=== PATIENT | female | born 1990 | race Caucasian/White ===

== ENCOUNTER 2016-09-29 21:57 | Emergency (ER) | payer OTHER ==
--- NOTE | 2016-09-29 22:34 | ED ORDER SUMMARY ---
..... Patient: AUSTIN LYNN OrderSheet [facility] VisitID: [id number] [address] [place] [place] [address] 26y, F Registration Date/Time: 09/29/2016 ORDER SHEET Weight: 90.7 kg (stated) Allergies: Hydrocodone GENERAL ORDERS: Visual Acuity (22:21 09/29/2016 EKoroleva P.A.-C) (22:36 KPage-Kuchan R.N.) MEDICATION ORDERS: Toradol IM 60 mg (NOW) (22:32 09/29/2016 EKoroleva P.A.-C) (Ack 22:36 KPage-Kuchan R.N.) (22:48 KPage-Kuchan R.N.) Zofran ODT PO 4 mg (NOW) (22:32 09/29/2016 EKoroleva P.A.-C) (Ack 22:36 KPage-Kuchan R.N.) (22:48 KPage-Kuchan R.N.) IV FLUIDS: ORDER SHEET NOTES: [Electronically signed by Kirstin FigueroaAYunior-Jesi (22:55 09/29/2016)] [Electronically signed by Elian Ibanez R.N. (23:20 09/29/2016)] [Electronically locked/signed by Elian Ibanez R.N. (23:20 09/29/2016)]
--- NOTE | 2016-09-29 22:34 | ED NURSING NOTES ---
Clinical Report - Nurses [facility] [address] [place] [address] 09/29/2016 21:58 Patient: AUSTIN LYNN TRIAGE Triage time 22:Sep 29 2016. Acuity: LEVEL 4. Chief Complaint: HEADACHE and (pt c/o headache to left side of head, hx of migraine, pt with redness to left eye since thursday last week- describes as "itchy" denies drainage). Alert. No acute distress. AMALIA COMA SCORE: [place] Coma Scale: 15- eyes open spontaneously (4); best verbal response- oriented x 4 (5); best motor response- obeys commands (6). --22:14 Elian Ibanez R.N. 22:06 09/29/16. BP: 135/80. HR: 76. RR: 15. O2 saturation: 100%. Temp: 98 F. Pain level now: 09/27. --22:14 Elian Ibanez R.N. Weight: 90.7 kg stated. Height/Length: 62 inches Per Patient. BMI: 36.6. --22:07 Elian Ibanez R.N. Medications None. --22:08 Elian Ibanez R.N. Allergies Hydrocodone. --22:09 Elian Ibanez R.N. Medication/allergy information source: the patient. --22:14 Elian Ibanez R.N. History Arrived by private vehicle. 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 PAST MEDICAL HX: Immunizations: up-to-date. Last normal menstrual period- September 10. SOCIAL HX: Former smoker, end date 2013. Alcohol use; consumes beer occasionally, liquor occasionally and wine occasionally. No drug use. No infectious disease exposure. No known contact with a sick individual. ABUSE ASSESSMENT: No report of abuse. SELF HARM ASSESSMENT: A self harm assessment was performed. The patient answered "no" to the question "Do you have thoughts of harming or killing yourself?". FALL RISK ASSESSMENT: Fall risk assessment completed. No fall risk identified. NUTRITIONAL RISK ASSESSMENT: The nutritional risk assessment revealed no deficiencies. FUNCTIONAL ASSESSMENT: Functional assessment: no impairments noted. LEARNING NEEDS ASSESSMENT: The learning needs assessment revealed no barriers. SKIN INTEGRITY ASSESSMENT: Skin integrity risk assessment completed. No skin integrity risk identified. --22:14 Elian Ibanez R.N. PROBLEMS: Pelvic Inflammatory Disease. Eczema. Ovarian Cyst. Abdominal Pain. Tonsillitis. Psoriasis. Gastroenteritis. LNMP - Last Normal Menstrual Period. ITP. Endometriosis. --22:09 Elian Ibnaez R.N. ADDITIONAL SURGERIES: Endoscopy. uterine Ablasion. --22:09 Elian Ibanez R.N. Interventions ID band on patient. --22:14 Elian Ibanez R.N. PHYSICAL ASSESSMENT Ambulatory to room. GENERAL / NEURO / PSYCH: Alert. Oriented X 4. Appears in no acute distress. Speech within normal limits. HEENT: No facial asymmetry noted. Pupils equal, round and reactive to light. RESPIRATORY: Respirations not labored. GI / : Abdomen soft and nontender. SKIN: Skin is warm and dry. --22:15 Elian Ibanez R.N. NURSING PROGRESS NOTES Reassurance given. Patient identifiers checked. Call light placed in reach. Side rails up x 1. Bed placed in lowest position. Brakes of bed on. Patient waiting for evaluation. --22:16 Elian Ibanez R.N. VISUAL ACUITY: Visual acuity performed without corrective lenses: left eye 20/30; right eye 20/25 minus two letters; both eyes 20/25. --22:39 Janette Jael 22:43 09/29/2016 Zofran ODT (Ondansetron) PO 4 mg given. Allergies verified and confirmed 5 rights. --22:48 Elian Ibanez R.N. 22:43 09/29/2016 Toradol (Ketorolac Tromethamine) IM 60 mg given. Given in the left gluteus geo. Allergies verified and confirmed 5 rights. --22:48 Elian Ibanez R.N. DISPOSITION / DISCHARGE Condition at departure: improved. No learning barriers present. Discharge instructions provided and reviewed with the patient. Reviewed medication(s) side effects, precautions, dosing and course information. Prescription(s) given to the patient. Patient verbalized understanding. Written instructions provided in Dutch. The patient was discharged by the physician treasury assistant. She was discharged home. She left the Emergency Department ambulatory and via private vehicle. Patient driving. --23:17 Elian Ibanez R.N. 23:15 09/29/16. BP: 124/74. HR: 72. RR: 15. O2 saturation: 99%. Temp: deferred. Pain level now: 06/27. --23:17 Elian Ibanez R.N. Locked/Released at 09/29/2016 23:20 by Elian Ibanez R.N.
--- NOTE | 2016-09-29 22:34 | ED CLINICAL REPORT ---
Clinical Report - Physicians/Mid Levels [facility] [address] [place] [address] 09/29/2016 21:58 Patient: AUSTIN LYNN Time Seen: 2229Sep 29 2016. Arrived- By private vehicle. HISTORY OF PRESENT ILLNESS Chief Complaint: headache, left eye irritation/ redness. This started 5 days and is still present. (patient reports headache over the left aspect, off and on over the last 5 days, with no associated nausea or vomiting, Lasix and sensitivity. Additionally reports was some irritation to the left eye, with some tearing from the eye, and redness. Denies any injury or trauma. Patient reports history of). REVIEW OF SYSTEMS No fever, sore throat, nausea, chills or headache. No blackouts. All systems otherwise negative, except as recorded above. PAST HISTORY Problems: Pelvic Inflammatory Disease. Eczema. Ovarian Cyst. Abdominal Pain. Tonsillitis. Psoriasis. Gastroenteritis. LNMP - Last Normal Menstrual Period. ITP. Endometriosis. Additional Surgeries: Endoscopy. uterine Ablasion. Medications: None. Allergies: Hydrocodone. SOCIAL HISTORY Former smoker. No drug use. ADDITIONAL NOTES The nursing notes have been reviewed. PHYSICAL EXAM Vital Signs: 09/29/2016 22:06 BP: 135/80. HR: 76. RR: 15. O2 saturation: 100%. Temp: 98 F. Pain level now: 6/10. Appearance: Alert. Does not appear to be anxious. Eyes: Visual acuity noted. Lt Eye: Left eye exam normal. Mildly injected conjunctiva. Pupil regular. No injury to the periorbital area or eyebrow area, eyelid edema or erythema or conjunctival foreign body. No corneal foreign body or abrasion or EOM palsy. ENT: Nose normal. Pharynx normal. Neck: Normal inspection. Neck supple. No carotid bruit. CVS: Normal heart rate and rhythm. Heart sounds normal. Respiratory: No respiratory distress. Neuro: Oriented X 3. No motor deficit. PROGRESS AND PROCEDURES Course of Care: left eye 20/30; right eye 20/25 minus two letters; both eyes 20/25. patient with signs of acute irritation likely secondary to allergic process, no drainage of eye in am, good visual acuity, no eom pain, no signs of pre-septal cellulitis or other. headache ongoing for 5 days. pt with no rash, no signs of zoster. Pt with no meningeal signs. STable. 09/29/2016 22:06 BP: 135/80. HR: 76. RR: 15. O2 saturation: 100%. Temp: 98 F. Pain level now: 6/10. Patient is stable. Patient/family counseled. Disposition: Discharged. CLINICAL IMPRESSION Acute headache. Acute conjunctivitis of the left eye. INSTRUCTIONS Warnings: Further evaluation is necessary. Prescription Medications: Patanol Ophthalmic Solution 0.1% : Instill 1-2 drops into affected eye 2 times daily 6 to 8 hours apart as needed for itching. Dispense five (5) mL. No refills. Substitution is permissible. benadryl 25 mg po qhs. OTC Medications: Loratadine 10 mg (available over the counter): take according to label instructions. Follow-up: Follow up with your doctor in three days. Follow-up with: Nayla Norris MD, Ophthalmology, [facility], [address] [place] [address] - [address], [place] [address] Follow up if not better. Call for the next available appointment. (Electronically signed by Kirstin Figueroa P.A.-C 09/29/2016 22:55)
--- NOTE | 2016-09-29 22:34 | ED NURSING NOTES ---
Clinical Report - Nurses [facility] [address] [place] [address] 09/29/2016 21:58 Patient: AUSTIN LYNN TRIAGE Triage time 22:Sep 29 2016. Acuity: LEVEL 4. Chief Complaint: HEADACHE and (pt c/o headache to left side of head, hx of migraine, pt with redness to left eye since thursday last week- describes as "itchy" denies drainage). Alert. No acute distress. AMALIA COMA SCORE: [place] Coma Scale: 15- eyes open spontaneously (4); best verbal response- oriented x 4 (5); best motor response- obeys commands (6). --22:14 Elian Ibanez R.N. 22:06 09/29/16. BP: 135/80. HR: 76. RR: 15. O2 saturation: 100%. Temp: 98 F. Pain level now: 09/27. --22:14 Elian Ibanez R.N. Weight: 90.7 kg stated. Height/Length: 62 inches Per Patient. BMI: 36.6. --22:07 Elian Ibanez R.N. Medications None. --22:08 Elian Ibanez R.N. Allergies Hydrocodone. --22:09 Elian Ibanez R.N. Medication/allergy information source: the patient. --22:14 Elian Ibanez R.N. History Arrived by private vehicle. 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 PAST MEDICAL HX: Immunizations: up-to-date. Last normal menstrual period- September 10. SOCIAL HX: Former smoker, end date 2013. Alcohol use; consumes beer occasionally, liquor occasionally and wine occasionally. No drug use. No infectious disease exposure. No known contact with a sick individual. ABUSE ASSESSMENT: No report of abuse. SELF HARM ASSESSMENT: A self harm assessment was performed. The patient answered "no" to the question "Do you have thoughts of harming or killing yourself?". FALL RISK ASSESSMENT: Fall risk assessment completed. No fall risk identified. NUTRITIONAL RISK ASSESSMENT: The nutritional risk assessment revealed no deficiencies. FUNCTIONAL ASSESSMENT: Functional assessment: no impairments noted. LEARNING NEEDS ASSESSMENT: The learning needs assessment revealed no barriers. SKIN INTEGRITY ASSESSMENT: Skin integrity risk assessment completed. No skin integrity risk identified. --22:14 Elian Ibanez R.N. PROBLEMS: Pelvic Inflammatory Disease. Eczema. Ovarian Cyst. Abdominal Pain. Tonsillitis. Psoriasis. Gastroenteritis. LNMP - Last Normal Menstrual Period. ITP. Endometriosis. --22:09 Elian Ibanez R.N. ADDITIONAL SURGERIES: Endoscopy. uterine Ablasion. --22:09 Elian Ibanez R.N. Interventions ID band on patient. --22:14 Elian Ibanez R.N. PHYSICAL ASSESSMENT Ambulatory to room. GENERAL / NEURO / PSYCH: Alert. Oriented X 4. Appears in no acute distress. Speech within normal limits. HEENT: No facial asymmetry noted. Pupils equal, round and reactive to light. RESPIRATORY: Respirations not labored. GI / : Abdomen soft and nontender. SKIN: Skin is warm and dry. --22:15 Elian Ibanez R.N. NURSING PROGRESS NOTES Reassurance given. Patient identifiers checked. Call light placed in reach. Side rails up x 1. Bed placed in lowest position. Brakes of bed on. Patient waiting for evaluation. --22:16 Elian Ibanez R.N. VISUAL ACUITY: Visual acuity performed without corrective lenses: left eye 20/30; right eye 20/25 minus two letters; both eyes 20/25. --22:39 Janette Jael 22:43 09/29/2016 Zofran ODT (Ondansetron) PO 4 mg given. Allergies verified and confirmed 5 rights. --22:48 Elian Ibanez R.N. 22:43 09/29/2016 Toradol (Ketorolac Tromethamine) IM 60 mg given. Given in the left gluteus geo. Allergies verified and confirmed 5 rights. --22:48 Elian Ibanez R.N. DISPOSITION / DISCHARGE Condition at departure: improved. No learning barriers present. Discharge instructions provided and reviewed with the patient. Reviewed medication(s) side effects, precautions, dosing and course information. Prescription(s) given to the patient. Patient verbalized understanding. Written instructions provided in [place]ese. The patient was discharged by the physician family services assistant. She was discharged home. She left the Emergency Department ambulatory and via private vehicle. Patient driving. --23:17 Elian Ibanez R.N. 23:15 09/29/16. BP: 124/74. HR: 72. RR: 15. O2 saturation: 99%. Temp: deferred. Pain level now: 06/27. --23:17 Elian Ibanez R.N. Locked/Released at 09/29/2016 23:20 by Elian Ibanez R.N.
--- NOTE | 2016-09-29 22:34 | ED ORDER SUMMARY ---
..... Patient: AUSTIN LYNN OrderSheet [facility] VisitID: [id number] [address] [place] [address] 26y, F Registration Date/Time: 09/29/2016 ORDER SHEET Weight: 90.7 kg (stated) Allergies: Hydrocodone GENERAL ORDERS: Visual Acuity (22:21 09/29/2016 EKoroleva P.A.-C) (22:36 KPage-Kuchan R.N.) MEDICATION ORDERS: Toradol IM 60 mg (NOW) (22:32 09/29/2016 EKoroleva P.A.-C) (Ack 22:36 KPage-Kuchan R.N.) (22:48 KPage-Kuchan R.N.) Zofran ODT PO 4 mg (NOW) (22:32 09/29/2016 EKoroleva P.A.-C) (Ack 22:36 KPage-Kuchan R.N.) (22:48 KPage-Kuchan R.N.) IV FLUIDS: ORDER SHEET NOTES: [Electronically signed by Kirstin FigueroaAYunior-Jesi (22:55 09/29/2016)] [Electronically signed by Elian Ibanez R.N. (23:20 09/29/2016)] [Electronically locked/signed by Elian Ibanez R.N. (23:20 09/29/2016)]
--- NOTE | 2016-09-29 22:34 | ED CLINICAL REPORT ---
Clinical Report - Physicians/Mid Levels [facility] [address] [place] [address] 09/29/2016 21:58 Patient: AUSTIN LYNN Time Seen: 2229Sep 29 2016. Arrived- By private vehicle. HISTORY OF PRESENT ILLNESS Chief Complaint: headache, left eye irritation/ redness. This started 5 days and is still present. (patient reports headache over the left aspect, off and on over the last 5 days, with no associated nausea or vomiting, Lasix and sensitivity. Additionally reports was some irritation to the left eye, with some tearing from the eye, and redness. Denies any injury or trauma. Patient reports history of). REVIEW OF SYSTEMS No fever, sore throat, nausea, chills or headache. No blackouts. All systems otherwise negative, except as recorded above. PAST HISTORY Problems: Pelvic Inflammatory Disease. Eczema. Ovarian Cyst. Abdominal Pain. Tonsillitis. Psoriasis. Gastroenteritis. LNMP - Last Normal Menstrual Period. ITP. Endometriosis. Additional Surgeries: Endoscopy. uterine Ablasion. Medications: None. Allergies: Hydrocodone. SOCIAL HISTORY Former smoker. No drug use. ADDITIONAL NOTES The nursing notes have been reviewed. PHYSICAL EXAM Vital Signs: 09/29/2016 22:06 BP: 135/80. HR: 76. RR: 15. O2 saturation: 100%. Temp: 98 F. Pain level now: 6/10. Appearance: Alert. Does not appear to be anxious. Eyes: Visual acuity noted. Lt Eye: Left eye exam normal. Mildly injected conjunctiva. Pupil regular. No injury to the periorbital area or eyebrow area, eyelid edema or erythema or conjunctival foreign body. No corneal foreign body or abrasion or EOM palsy. ENT: Nose normal. Pharynx normal. Neck: Normal inspection. Neck supple. No carotid bruit. CVS: Normal heart rate and rhythm. Heart sounds normal. Respiratory: No respiratory distress. Neuro: Oriented X 3. No motor deficit. PROGRESS AND PROCEDURES Course of Care: left eye 20/30; right eye 20/25 minus two letters; both eyes 20/25. patient with signs of acute irritation likely secondary to allergic process, no drainage of eye in am, good visual acuity, no eom pain, no signs of pre-septal cellulitis or other. headache ongoing for 5 days. pt with no rash, no signs of zoster. Pt with no meningeal signs. STable. 09/29/2016 22:06 BP: 135/80. HR: 76. RR: 15. O2 saturation: 100%. Temp: 98 F. Pain level now: 6/10. Patient is stable. Patient/family counseled. Disposition: Discharged. CLINICAL IMPRESSION Acute headache. Acute conjunctivitis of the left eye. INSTRUCTIONS Warnings: Further evaluation is necessary. Prescription Medications: Patanol Ophthalmic Solution 0.1% : Instill 1-2 drops into affected eye 2 times daily 6 to 8 hours apart as needed for itching. Dispense five (5) mL. No refills. Substitution is permissible. benadryl 25 mg po qhs. OTC Medications: Loratadine 10 mg (available over the counter): take according to label instructions. Follow-up: Follow up with your doctor in three days. Follow-up with: Nayla Norris MD, Ophthalmology, [facility], [address] [place] [address] - [address], [place] [address] Follow up if not better. Call for the next available appointment. (Electronically signed by Kirstin Figueroa P.A.-C 09/29/2016 22:55)
--- NOTE | 2016-09-29 23:22 | ED DISCHARGE INSTRUCTIONS ---
Patient: AUSTIN LYNN General Instructions [facility] VisitID: [id number] [address] [place] [address] 26y, F Registration Date/Time: 09/29/2016 Acute headache. Acute conjunctivitis of the left eye. INSTRUCTIONS Warnings: Further evaluation is necessary. Prescription Medications: Patanol Ophthalmic Solution 0.1% : Instill 1-2 drops into affected eye 2 times daily 6 to 8 hours apart as needed for itching. Dispense five (5) mL. No refills. Substitution is permissible. benadryl 25 mg po qhs. OTC Medications: Loratadine 10 mg (available over the counter): take according to label instructions. Follow-up: Follow up with your doctor in three days. Follow-up with: Nayla Norris MD, Ophthalmology, [facility], [address] [place] [address] - [address] [address] Follow up if not better. Call for the next available appointment. ADDITIONAL INFORMATION Conjunctivitis, Allergic Allergic Conjunctivitis is a reaction to dust or pollen in the air. This causes itching and redness in the membranes of the eyelids. There may be swelling of the lids, redness, and a gritty or scratchy feeling in the eye. Home Care: Eye drops may be prescribed to reduce itching and redness. Use these as directed. Otherwise, Visine, Vasocon or other [id number] decongestant eye drops may be used. Apply a cool compress (towel soaked in cool water) to the affected eye 3-4 times a day to reduce swelling and itching. It is common to have mucus drainage during the night causing the eyelids to become crusted by morning. Use a warm wet cloth to wipe this away. You may also use saline irrigating solution or artificial tears to rinse away mucus inside the eye. Do not patch the eye. You may use acetaminophen (Tylenol) or ibuprofen (Motrin, Advil) to control pain, unless another medicine was prescribed. [ NOTE: If you have chronic liver or kidney disease or ever had a stomach ulcer or GI bleeding, talk with your doctor before using these medicines.] Do not wear contact lenses until your eyes have healed and all symptoms are gone. Follow Up with your doctor or this facility as directed, or if there has not been improvement within five days. Get Prompt Medical Attention if any of the following occur: Increased swelling of the eyelid New or worsening drainage from the eye Increasing redness around the eye Facial swelling Headache [Unspecified] The cause of your headache today is not clear, but it does not appear to be the sign of any serious illness. Under stress, some people tense the muscles of their shoulder, neck and scalp without knowing it. If this condition lasts long enough, a TENSION HEADACHE can occur. A MIGRAINE HEADACHE is caused by changes in blood flow to the brain. A migraine attack may be triggered by emotional stress, hormone changes during the menstrual cycle, oral contraceptives, alcohol use, certain foods containing tyramine, eye strain, weather changes, missing meals, lack of sleep or oversleeping. Other causes of headache include a viral illness with high fever, head injury with concussion, sinus, ear or throat infection, dental pain and TMJ (jaw joint) pain. More serious but less common causes of headache include stroke, brain hemorrhage, brain tumor, meningitis and encephalitis. Home Care: If you were given pain medicine for this headache, do not drive yourself home. Arrange for a ride, instead. When you get home, try to sleep. You should feel much better when you wake up. Apply heat to the back of your neck to relieve neck muscle spasm. Migraine headaches may respond best to an ice pack on the forehead or at the base of the skull. If you are having nausea or vomiting, follow a light diet until your headache is relieved. If you have a migraine type headache, use sunglasses when in the daylight or around bright indoor lighting until symptoms improve. Bright glaring light can worsen this kind of headache. Follow Up with your doctor if the headache is not better within the next 24 hours. If you have frequent headaches you should discuss a treatment plan with your primary care doctor. By being aware of the earliest signs of headache, and starting treatment right away, you may be able to stop the pain yourself. Get Prompt Medical Attention if any of the following occur: Worsening of your head pain or no improvement within 24 hours Repeated vomiting (unable to keep liquids down) Fever of 100.4F (38C) or higher, or as directed by your healthcare provider Stiff neck Extreme drowsiness, confusion or fainting Dizziness, vertigo (dizziness with spinning sensation) Weakness of an arm or leg or one side of the face Difficulty with speech or vision You have been given the following additional information: Conjunctivitis, Allergic Headache, Unspecified (Electronically signed by Kirstin Figueroa P.A.-C 09/29/2016 22:55)
--- NOTE | 2016-09-29 23:22 | ED DISCHARGE INSTRUCTIONS ---
Patient: AUSTIN LYNN General Instructions [facility] VisitID: [id number] [address] [place] [address] 26y, F Registration Date/Time: 09/29/2016 Acute headache. Acute conjunctivitis of the left eye. INSTRUCTIONS Warnings: Further evaluation is necessary. Prescription Medications: Patanol Ophthalmic Solution 0.1% : Instill 1-2 drops into affected eye 2 times daily 6 to 8 hours apart as needed for itching. Dispense five (5) mL. No refills. Substitution is permissible. benadryl 25 mg po qhs. OTC Medications: Loratadine 10 mg (available over the counter): take according to label instructions. Follow-up: Follow up with your doctor in three days. Follow-up with: Nayla Norris MD, Ophthalmology, [facility], [address] [place] [address] - [address] [address] Follow up if not better. Call for the next available appointment. ADDITIONAL INFORMATION Conjunctivitis, Allergic Allergic Conjunctivitis is a reaction to dust or pollen in the air. This causes itching and redness in the membranes of the eyelids. There may be swelling of the lids, redness, and a gritty or scratchy feeling in the eye. Home Care: Eye drops may be prescribed to reduce itching and redness. Use these as directed. Otherwise, Visine, Vasocon or other xagb-jcj-qathint decongestant eye drops may be used. Apply a cool compress (towel soaked in cool water) to the affected eye 3-4 times a day to reduce swelling and itching. It is common to have mucus drainage during the night causing the eyelids to become crusted by morning. Use a warm wet cloth to wipe this away. You may also use saline irrigating solution or artificial tears to rinse away mucus inside the eye. Do not patch the eye. You may use acetaminophen (Tylenol) or ibuprofen (Motrin, Advil) to control pain, unless another medicine was prescribed. [ NOTE: If you have chronic liver or kidney disease or ever had a stomach ulcer or GI bleeding, talk with your doctor before using these medicines.] Do not wear contact lenses until your eyes have healed and all symptoms are gone. Follow Up with your doctor or this facility as directed, or if there has not been improvement within five days. Get Prompt Medical Attention if any of the following occur: Increased swelling of the eyelid New or worsening drainage from the eye Increasing redness around the eye Facial swelling Headache [Unspecified] The cause of your headache today is not clear, but it does not appear to be the sign of any serious illness. Under stress, some people tense the muscles of their shoulder, neck and scalp without knowing it. If this condition lasts long enough, a TENSION HEADACHE can occur. A MIGRAINE HEADACHE is caused by changes in blood flow to the brain. A migraine attack may be triggered by emotional stress, hormone changes during the menstrual cycle, oral contraceptives, alcohol use, certain foods containing tyramine, eye strain, weather changes, missing meals, lack of sleep or oversleeping. Other causes of headache include a viral illness with high fever, head injury with concussion, sinus, ear or throat infection, dental pain and TMJ (jaw joint) pain. More serious but less common causes of headache include stroke, brain hemorrhage, brain tumor, meningitis and encephalitis. Home Care: If you were given pain medicine for this headache, do not drive yourself home. Arrange for a ride, instead. When you get home, try to sleep. You should feel much better when you wake up. Apply heat to the back of your neck to relieve neck muscle spasm. Migraine headaches may respond best to an ice pack on the forehead or at the base of the skull. If you are having nausea or vomiting, follow a light diet until your headache is relieved. If you have a migraine type headache, use sunglasses when in the daylight or around bright indoor lighting until symptoms improve. Bright glaring light can worsen this kind of headache. Follow Up with your doctor if the headache is not better within the next 24 hours. If you have frequent headaches you should discuss a treatment plan with your primary care doctor. By being aware of the earliest signs of headache, and starting treatment right away, you may be able to stop the pain yourself. Get Prompt Medical Attention if any of the following occur: Worsening of your head pain or no improvement within 24 hours Repeated vomiting (unable to keep liquids down) Fever of 100.4F (38C) or higher, or as directed by your healthcare provider Stiff neck Extreme drowsiness, confusion or fainting Dizziness, vertigo (dizziness with spinning sensation) Weakness of an arm or leg or one side of the face Difficulty with speech or vision You have been given the following additional information: Conjunctivitis, Allergic Headache, Unspecified (Electronically signed by Kirstin Figueroa P.A.-C 09/29/2016 22:55)
--- NOTE | 2016-09-29 23:22 | ED MAR SUMMARY ---
..... Medication Administration Record [facility] [address] [place] [address] Patient: AUSTNI LYNN Visit ID: [id number] 26y, F Weight: 90.7 kg Height/Length: 62 in BMI: 36.6 ALLERGIES: Hydrocodone Given 22:43 09/29/2016 Elian Ibanez, RYuniorNYunior Medication Administered: TORADOL [IM] (KETOROLAC TROMETHAMINE), Dose: 60 mg IM. Medication Ordered: Toradol IM 60 mg (NOW). Given :09/29/2016 Elian Ibanez, RYuniorN. Medication Administered: ZOFRAN ODT [PO] (ONDANSETRON), Dose: 4 mg PO. Medication Ordered: Zofran ODT PO 4 mg (NOW).
--- NOTE | 2016-09-29 23:22 | ED MED RECONCILIATION SUMMARY ---
Patient: AUSTIN LYNN Medication Reconciliation Report [facility] VisitID: [id number] [address] [place] [address] 26y, F Registration Date/Time: 09/29/2016 Weight: 90.7 kg Height/Length: 62 in. BMI: 36.6 ALLERGIES: Hydrocodone The patient's Home Medications are listed below: NONE. The source(s) of the original Home Medication information: patient The following Medications were given to the patient in the Emergency Department: Zofran ODT [PO] PO 4 mg, administered: 09/29/2016 10:43:00 PM Toradol [IM] IM 60 mg, administered: 09/29/2016 10:43:00 PM The following Medications were prescribed to the patient: benadryl 25 mg po qhs. -- Kirstin Figueroa, P.A.-C Loratadine 10 mg (available over the counter): take according to label instructions. -- Kirstin Figueroa, P.A.-Jesi Patanol Ophthalmic Solution 0.1% : Instill 1-2 drops into affected eye 2 times daily 6 to 8 hours apart as needed for itching. Dispense five (5) mL. No refills. Substitution is permissible. -- Kirstin Figueroa P.A.-C
--- NOTE | 2016-09-29 23:22 | ED MAR SUMMARY ---
..... Medication Administration Record [facility] [address] [place] [address] Patient: AUSTIN LYNN Visit ID: [id number] 26y, F Weight: 90.7 kg Height/Length: 62 in BMI: 36.6 ALLERGIES: Hydrocodone Given 22:43 09/29/2016 Elian Ibanez, RYuniorNYunior Medication Administered: TORADOL [IM] (KETOROLAC TROMETHAMINE), Dose: 60 mg IM. Medication Ordered: Toradol IM 60 mg (NOW). Given :09/29/2016 Elian Ibanez, RYuniorN. Medication Administered: ZOFRAN ODT [PO] (ONDANSETRON), Dose: 4 mg PO. Medication Ordered: Zofran ODT PO 4 mg (NOW).
--- NOTE | 2016-09-29 23:22 | ED MED RECONCILIATION SUMMARY ---
Patient: AUSTIN LYNN Medication Reconciliation Report [facility] VisitID: [id number] [address] [place] [address] 26y, F Registration Date/Time: 09/29/2016 Weight: 90.7 kg Height/Length: 62 in. BMI: 36.6 ALLERGIES: Hydrocodone The patient's Home Medications are listed below: NONE. The source(s) of the original Home Medication information: patient The following Medications were given to the patient in the Emergency Department: Zofran ODT [PO] PO 4 mg, administered: 09/29/2016 10:43:00 PM Toradol [IM] IM 60 mg, administered: 09/29/2016 10:43:00 PM The following Medications were prescribed to the patient: benadryl 25 mg po qhs. -- Kirstin Figueroa, P.A.-C Loratadine 10 mg (available over the counter): take according to label instructions. -- Kirstin Figueroa, P.A.-Jesi Patanol Ophthalmic Solution 0.1% : Instill 1-2 drops into affected eye 2 times daily 6 to 8 hours apart as needed for itching. Dispense five (5) mL. No refills. Substitution is permissible. -- Kirstin Figueroa P.A.-C
== END 2016-09-29 23:09 | disposition home or self-care (01) ==
LOC: ED SRH 21:57
DX: R51 Headache (principal); H10.32 Unspecified acute conjunctivitis, left eye; Z88.5 Allergy status to narcotic agent

== ENCOUNTER 2016-10-11 10:16 | Emergency (ER) | payer OTHER ==
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
--- NOTE | 2016-10-11 12:33 | ED ORDER SUMMARY ---
..... Patient: AUSTIN LYNN OrderSheet [facility] VisitID: [id number] [address] [place] [address] 26y, F Registration Date/Time: 10/11/2016 ORDER SHEET Weight: 95.7 kg (stated) Allergies: Hydrocodone, Patanol GENERAL ORDERS: Chest 2V Urgent (10:42 10/11/2016 Leila Marti) (Ack 10:53 RKaruga) (12:03 RKaruga) Cervical Spine 2 or 3V Urgent (10:10/11/2016 Leila Marti) (Ack 10:53 RKaruga) (12:03 RKaruga) UA-Culture if indicated Urgent (10:10/11/2016 Leila Marit) (Ack 10:45 RKaruga) (11:03 Aniya R.N.) Urine Urgent (10:10/11/2016 Leila Marti) (Ack 10:45 RKaruga) (11:03 Aniya R.N.) MEDICATION ORDERS: IV FLUIDS: ORDER SHEET NOTES: [Electronically signed by Abdelrahman Quevedo R.N. (13:28 10/11/2016)] [Electronically signed by Justen Cruz Dr. (22:19 10/11/2016)] [Electronically locked/signed by Abdelrahman Quevedo R.N. (13:28 10/11/2016)]
--- NOTE | 2016-10-11 12:33 | ED ORDER SUMMARY ---
..... Patient: AUSTIN LYNN OrderSheet [facility] VisitID: [id number] [address] [place] [address] 26y, F Registration Date/Time: 10/11/2016 ORDER SHEET Weight: 95.7 kg (stated) Allergies: Hydrocodone, Patanol GENERAL ORDERS: Chest 2V Urgent (10:42 10/11/2016 Leila Marti) (Ack 10:53 RKaruga) (12:03 RKaruga) Cervical Spine 2 or 3V Urgent (10:10/11/2016 Leila Marti) (Ack 10:53 RKaruga) (12:03 RKaruga) UA-Culture if indicated Urgent (10:10/11/2016 Leila Marti) (Ack 10:45 RKaruga) (11:03 Aniya R.N.) Urine Urgent (10:10/11/2016 Leila Marti) (Ack 10:45 RKaruga) (11:03 Aniya R.N.) MEDICATION ORDERS: IV FLUIDS: ORDER SHEET NOTES: [Electronically signed by Abdelrahman Quevedo R.N. (13:28 10/11/2016)] [Electronically signed by Justen Cruz Dr. (22:19 10/11/2016)] [Electronically locked/signed by Abdelrahman Quevedo R.N. (13:28 10/11/2016)]
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
--- NOTE | 2016-10-11 22:19 | ED MAR SUMMARY ---
..... Medication Administration Record [facility] [address] [place], [place] [id number] Patient: AUSTIN LYNN Visit ID: [id number] 26y, F Weight: 95.7 kg Height/Length: 62 in BMI: 38.6 ALLERGIES: Patanol, Hydrocodone
--- NOTE | 2016-10-11 22:19 | ED MED RECONCILIATION SUMMARY ---
Patient: AUSTIN LYNN Medication Reconciliation Report [facility] VisitID: [id number] [address] [place] [address] 26y, F Registration Date/Time: 10/11/2016 Weight: 95.7 kg Height/Length: 62 in. BMI: 38.6 ALLERGIES: Hydrocodone, Patanol The patient's Home Medications are listed below: CONTINUE TAKING THE FOLLOWING MEDICATIONS: Loratadine Allergy Relief Oral Triamcinolone Acetonide External The source(s) of the original Home Medication information: Not obtained. The following Medications were given to the patient in the Emergency Department: None. The following Medications were prescribed to the patient: Baclofen 10 mg: take 1 orally every 8 hours. Dispense thirty (30). No refills. -- Justen Cruz Dr. Diclofenac 50 mg tablets: take 1 tablet orally every 8 hours as needed for pain or stiffness. Dispense thirty (30). No refill. -- Justen Cruz Dr.
--- NOTE | 2016-10-11 22:19 | ED MED RECONCILIATION SUMMARY ---
Patient: AUSTIN LYNN Medication Reconciliation Report [facility] VisitID: [id number] [address] [place] [address] 26y, F Registration Date/Time: 10/11/2016 Weight: 95.7 kg Height/Length: 62 in. BMI: 38.6 ALLERGIES: Hydrocodone, Patanol The patient's Home Medications are listed below: CONTINUE TAKING THE FOLLOWING MEDICATIONS: Loratadine Allergy Relief Oral Triamcinolone Acetonide External The source(s) of the original Home Medication information: Not obtained. The following Medications were given to the patient in the Emergency Department: None. The following Medications were prescribed to the patient: Baclofen 10 mg: take 1 orally every 8 hours. Dispense thirty (30). No refills. -- Justen Cruz Dr. Diclofenac 50 mg tablets: take 1 tablet orally every 8 hours as needed for pain or stiffness. Dispense thirty (30). No refill. -- Justen Cruz Dr.
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
--- NOTE | 2016-10-11 22:19 | ED MAR SUMMARY ---
..... Medication Administration Record [facility] [address], [place] [id number] Patient: AUSTIN LYNN Visit ID: [id number] 26y, F Weight: 95.7 kg Height/Length: 62 in BMI: 38.6 ALLERGIES: Patanol, Hydrocodone
== END 2016-10-11 12:42 | disposition home or self-care (01) ==
LOC: ED SRH 10:16
DX: S16.1XXA Strain of muscle, fascia and tendon at neck level, initial encounter (principal); S20.219A Contusion of unspecified front wall of thorax, initial encounter; V47.5XXA Car driver injured in collision with fixed or stationary object in traffic accident, initial encounter; Y93.89 Activity, other specified; Y99.9 Unspecified external cause status; Y92.9 Unspecified place or not applicable; Z79.899 Other long term (current) drug therapy; Z88.8 Allergy status to other drugs, medicaments and biological substances
CPT/HCPCS: 90004; 93070